=== PATIENT | female | born 1995 | race Caucasian/White ===

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

== ENCOUNTER 2017-01-09 23:16 | Observation (INO) | payer BC, MEDICAID ==
[~2017-01-09] VITALS: Ht 162.6 cm; Wt 67.1 kg
[2017-01-09] MEDS ORDERED: DIPHENOXYLATE HCL/ATROP SULF 2.5 MG TAB PO SCH (23:45)
[2017-01-09] MEDS ORDERED: ONDANSETRON HCL 4 MG/2 ML VIAL IVP ONE (23:45)
[2017-01-09] MEDS ORDERED: D5/0.45 NS 1,000 ML IV SCH (23:45)
[2017-01-09] MEDS ORDERED: D5/0.45 NS 500 ML IV ONE (23:45)
[2017-01-10 00:16] LABS: HEMOGLOBIN 10.6 g/dL (12.0-16.0); RED CELL DISTRIBUTION WIDTH 14.2 % (9.0-15.0)
[2017-01-10 00:21] LABS: CALCIUM 8.4 mg/dL (8.4-11.0); CREATININE 0.64 mg/dL (0.55-1.30); MEAN CORPUSCULAR HEMOGLOBIN 24 pg (27-31); MEAN CORPUSCULAR HGB CONC 33 % (32-36); MEAN CORPUSCULAR VOLUME 73 fL (79.0-98.0)
[2017-01-10 00:28] LABS: ALBUMIN 2.9 g/dL (3.4-4.8); TOTAL BILIRUBIN 0.7 mg/dL (0.0-1.0)
[2017-01-10 00:36] LABS: HEMATOCRIT 32.4 % (36-48); PLATELET COUNT (AUTO) 270 K/uL (130-430); RED BLOOD CELL COUNT(AUTO) 4.43 MIL/uL (4.2-6.2); WHITE BLOOD COUNT (AUTO) 10.5 K/uL (4.5-11.0)
[2017-01-10] MEDS ORDERED: ONDANSETRON HCL 4 MG/2 ML VIAL IVP SCH (01:00)
[2017-01-10 01:01] LABS: BAND % (MANUAL) 0 % (0-6); BASOPHILS % (MANUAL) 0 % (0-2); EOSINOPHILS % (MANUAL) 2 % (0-7); LYMPHOCYTES % (MANUAL) 14 % (20-46); MONOCYTES % (MANUAL) 5 % (0-11)
[2017-01-10] MEDS ORDERED: ONDANSETRON HCL 4 MG/2 ML VIAL ONE (01:05)
[2017-01-10 05:07] VITALS: BP_SYST 118
== END 2017-01-10 15:50 | disposition home or self-care (01) ==
LOC: SPU 23:16
PROVIDERS: ADMIT Specialist; ATTEND Specialist
DX: O21.2 Late vomiting of pregnancy (principal); O26.892 Other specified pregnancy related conditions, second trimester; R19.7 Diarrhea, unspecified; Z3A.26 26 weeks gestation of pregnancy
CPT/HCPCS: 36415; 80053; 81002; 82962; 85007; 85027; G0378 ×2; J2405

== ENCOUNTER 2017-03-14 15:37 | Emergency (ER) | payer MEDICAID ==
[~2017-03-14] VITALS: Ht 162.6 cm; Wt 77.1 kg
[2017-03-14 15:51] VITALS: BP_SYST 135
[2017-03-14 17:33] LABS: BILIRUBIN,URINE NEGATIVE (NEGATIVE); BLOOD, URINE NEGATIVE (NEGATIVE); CLARITY/URINE SL HAZY (CLEAR); COLOR,URINE YELLOW (YELLOW); GLUCOSE,URINE NEGATIVE (NEGATIVE); KETONES,URINE 1+ (NEGATIVE); LEUKOCYTE ESTERASE ,URINE TRACE (NEGATIVE); NITRITE, URINE NEGATIVE (NEGATIVE); PROTEIN URINE NEGATIVE (NEGATIVE)
[2017-03-14 17:38] LABS: BACTERIA,URINE FEW /HPF (None Seen); MUCUS,URINE 1+ /LPF (None Seen); RBC,URINE NONE SEEN /HPF (0-3)
--- NOTE | 2017-03-14 17:50 | NUR ---
Ronna PRODUCT DEVELOPMENT ECOLOGIST at bedside to evaluate patient
--- NOTE | 2017-03-14 17:50 | NUR ---
Pt to ER [place] [id number] Chair. MSE complete.
--- NOTE | 2017-03-14 17:55 | NUR ---
Patient to ER via triage with c/o rash with itching x 1 week. No c/o pain or SOB, patient able to handle her own secretions. Patient reports taking Benadryl OTC without relief of symptoms. Patient denies any known exposure to allergens. Patient has been seen and evaluated by Ronna SINGH. Will continue to observe and assess.
--- NOTE | 2017-03-14 18:00 | NUR ---
FHT OF 139 OBTAINED PRIOR TO BEING D/C.
--- NOTE | 2017-03-14 18:03 | NUR ---
Patient given written and verbal discharge instructions and verbalizes understanding. ER MD discussed with patient the results and treatment provided. Patient in stable condition. ID arm band removed. IV catheter removed intact and dressing applied, no active bleeding. Rx of MACROBID, KENALOG given. Patient educated on pain management and to follow up with PMD. Pain Scale . Opportunity for questions provided and answered.
[2017-03-14 18:10] VITALS: BP_SYST 135
== END 2017-03-14 18:02 | disposition home or self-care (01) ==
LOC: SED 15:37
DX: O26.893 Other specified pregnancy related conditions, third trimester (principal); O23.43 Unspecified infection of urinary tract in pregnancy, third trimester; L50.8 Other urticaria; R03.0 Elevated blood-pressure reading, without diagnosis of hypertension; Z3A.36 36 weeks gestation of pregnancy; Z91.018 Allergy to other foods
CPT/HCPCS: 81000-TC; 87086; 99284

== ENCOUNTER 2017-03-21 12:52 | Inpatient (IN) | payer BC, MEDICAID ==
[~2017-03-21] VITALS: Ht 165.1 cm; Wt 77.1 kg
[2017-03-21] MEDS ORDERED: OXYTOCIN/NORMAL SALINE 1,000 ML IV SCH ×2 (13:03→22:47)
[2017-03-21] MEDS ORDERED: LR 1,000 ML IV SCH (13:03)
[2017-03-21] MEDS ORDERED: LR 1,000 ML IV ONE (13:03)
[2017-03-21] MEDS ORDERED: TERBUTALINE SULFATE 1 MG/ML VIAL SUBCUT ONE (13:15)
[2017-03-21 13:38] LABS: BASOPHILS # (AUTO) 0.1 K/uL (0.0-0.2); BASOPHILS % (AUTO) 0.6 % (0.0-2.0); EOSINOPHILS # (AUTO) 0.1 K/uL (0.0-0.4); EOSINOPHILS % (AUTO) 0.6 % (0.0-4.0); HEMOGLOBIN 10.1 g/dL (12.0-16.0); LYMPHOCYTES # (AUTO) 1.4 K/uL (1.0-5.5); LYMPHOCYTES % (AUTO) 13.4 % (20.5-51.5); MEAN CORPUSCULAR HEMOGLOBIN 22 pg (27-31); MEAN CORPUSCULAR HGB CONC 32 % (32-36); MEAN CORPUSCULAR VOLUME 70 fL (79.0-98.0); MONOCYTES # (AUTO) 0.6 K/uL (0.0-1.0); MONOCYTES % (AUTO) 6.1 % (1.7-9.3); NEUTROPHILS # (AUTO) 8.3 K/uL (1.8-7.7); NEUTROPHILS % (AUTO) 79.3 % (40.0-70.0); PLATELET COUNT (AUTO) 229 K/uL (130-430); RED BLOOD CELL COUNT(AUTO) 4.55 MIL/uL (4.2-6.2); RED CELL DISTRIBUTION WIDTH 17.1 % (9.0-15.0); WHITE BLOOD COUNT (AUTO) 10.5 K/uL (4.5-11.0)
[2017-03-21] MEDS ORDERED: FENT2mCg/mL-ROPIVA0.2%/NS EPID 0 ML EP ONE (14:19)
[2017-03-21] MEDS ORDERED: fentaNYL CITRATE/PF 100 MCG/2 ML AMP ONE ×2 (14:19→21:35)
[2017-03-21] MEDS ORDERED: FENT2mCg/mL-ROPIVA0.2%/NS EPID 150 ML EP ONE ×2 (15:23→21:35)
[2017-03-21] MEDS ORDERED: LIDOCAINE PF 1%, 20 MG/2 ML AMP ONE (15:23)
[2017-03-21] MEDS ORDERED: NALBUPHINE HCL 10 MG/ML AMP IVP PRN (16:40)
[2017-03-21] MEDS ORDERED: NALBUPHINE HCL 10 MG/ML AMP ONE (16:44)
[2017-03-21] MEDS ORDERED: TEMAZEPAM 15 MG CAPSULE PO PRN (21:00)
[2017-03-21] MEDS ORDERED: LR 500 ML IV ONE (21:49)
[2017-03-21] MEDS ORDERED: FENT2mCg/mL-ROPIVA0.2%/NS EPID 150 ML EP SCH (22:00)
[2017-03-21] MEDS ORDERED: ePHEDrine sulfate 50 MG/ML VIAL IVP PRN (22:00)
[2017-03-21] MEDS ORDERED: fentaNYL CITRATE/PF 100 MCG/2 ML AMP EP ONE (22:00)
[2017-03-21] MEDS ORDERED: OXYTOCIN/NORMAL SALINE 1,000 ML IV ONE (22:47)
[2017-03-21] MEDS ORDERED: GLYCERIN/WITCH HAZEL (TUCKS PADS) TP PRN (23:00)
[2017-03-21] MEDS ORDERED: MEASLES,MUMPS&RUBELLA VACC/PF 12500 UNIT/0.5 ML VIAL SUBQ PRN (23:00)
[2017-03-21] MEDS ORDERED: HYDROCORTISONE 0.5%, 28.35 GM TOPICAL CREAM TP PRN (23:00)
[2017-03-21] MEDS ORDERED: LANOLIN 7 GM OINT. TP PRN (23:00)
[2017-03-21] MEDS ORDERED: SENNOSIDES/DOCUSATE SODIUM 1 TAB TABLET(SENOKOT-S) PO PRN (23:00)
[2017-03-21] MEDS ORDERED: ANUSOL 1 EA SUPP.RECT (PREPARATION H) RC PRN (23:00)
[2017-03-21] MEDS ORDERED: METHYLERGONOVINE MALEATE 0.2 MG TABLET PO PRN (23:00)
[2017-03-21] MEDS ORDERED: RHO(D) IMMUNE GLOBULIN/MALTOSE 1500 UNITS/1.3 ML (WINHRO) IM PRN (23:00)
[2017-03-21] MEDS ORDERED: DOCUSATE SODIUM 100 MG CAPSULE PO PRN (23:00)
[2017-03-21] MEDS ORDERED: HYDROcodone/ACETAMIN 5-325 MG TAB (NORCO/ VICODIN) PO PRN (23:00)
[2017-03-21] MEDS ORDERED: DERMOPLAST SPRAY TP PRN (23:00)
[2017-03-22] MEDS ORDERED: DIPHENHYDRAMINE INJ 50 MG/ML VIAL IVP PRN (01:30)
[2017-03-22] MEDS ORDERED: DIPHENHYDRAMINE HCL 50 MG CAPSULE PO PRN (01:30)
[2017-03-22] MEDS: IBUPROFEN 600 MG TABLET PO SCH ×4 (02:13→23:50)
[2017-03-22 07:27] LABS: BASOPHILS % (AUTO) 0.3 % (0.0-2.0); EOSINOPHILS # (AUTO) 0.1 K/uL (0.0-0.4); EOSINOPHILS % (AUTO) 0.4 % (0.0-4.0); HEMATOCRIT 32.2 % (36-48); LYMPHOCYTES # (AUTO) 1.6 K/uL (1.0-5.5); LYMPHOCYTES % (AUTO) 11.4 % (20.5-51.5); MEAN CORPUSCULAR HEMOGLOBIN 22 pg (27-31); MEAN CORPUSCULAR HGB CONC 31 % (32-36); MEAN CORPUSCULAR VOLUME 71 fL (79.0-98.0); MONOCYTES # (AUTO) 0.7 K/uL (0.0-1.0); MONOCYTES % (AUTO) 4.9 % (1.7-9.3); PLATELET COUNT (AUTO) 201 K/uL (130-430); RED BLOOD CELL COUNT(AUTO) 4.56 MIL/uL (4.2-6.2); RED CELL DISTRIBUTION WIDTH 17.2 % (9.0-15.0); WHITE BLOOD COUNT (AUTO) 14.4 K/uL (4.5-11.0)
[2017-03-22] MEDS ORDERED: MINERAL OIL 30 ML UDC PO ONE (19:12)
[2017-03-22] MEDS ORDERED: ROPIVACAINE 40 MG/20 ML AMP EP ONE (19:14)
[2017-03-22] MEDS: OXYCODONE/ACETAMINOPHEN 5-325 TABLET PO PRN (23:54)
[2017-03-23] MEDS: IBUPROFEN 600 MG TABLET PO SCH ×2 (06:00→12:05)
[2017-03-23] MEDS: OXYCODONE/ACETAMINOPHEN 5-325 TABLET PO PRN (06:06)
[2017-03-23] MEDS ORDERED: FLU VACC QS 2017-18(36MOS+)/PF 0.5 ML/SYR SYRINGE I.M. ONE (13:24)
== END 2017-03-23 13:40 | disposition home or self-care (01) | DRG 775 ==
LOC: SPU 12:52
PROVIDERS: ADMIT Specialist; ATTEND Specialist
PROC: 10E0XZZ Delivery of Products of Conception, External Approach (ICD-10-PCS; principal; 2017-03-21)
PROC: 3E0R3BZ Introduction of Anesthetic Agent into Spinal Canal, Percutaneous Approach (ICD-10-PCS; 2017-03-21)
PROC: 00HU33Z Insertion of Infusion Device into Spinal Canal, Percutaneous Approach (ICD-10-PCS; 2017-03-21)
PROC: 3E0234Z Introduction of Serum, Toxoid and Vaccine into Muscle, Percutaneous Approach (ICD-10-PCS; 2017-03-23)
DX: O99.02 Anemia complicating childbirth (principal); D64.9 Anemia, unspecified; Z37.0 Single live birth; Z3A.37 37 weeks gestation of pregnancy; Z23 Encounter for immunization
CPT/HCPCS: 36415; 85025; 86592; 86886; 86900; 86901; A4618; J1200; J2001; J2300; J2590; J2795; J3010; J7120; Q0163; Q2037

== ENCOUNTER 2017-10-26 22:06 | Observation (INO) | payer BC, MEDICAID ==
[~2017-10-26] VITALS: Ht 162.6 cm; Wt 68.0 kg
[2017-10-26] MEDS ORDERED: D5/0.45 NS 1,000 ML IV ONE (22:30)
[2017-10-26] MEDS ORDERED: ONDANSETRON HCL 4 MG/2 ML VIAL IVP ONE (22:30)
== END 2017-10-27 06:00 | disposition home or self-care (01) ==
LOC: UNDOADMOB 22:06 → SPU 22:06
PROVIDERS: ADMIT Specialist; ATTEND Specialist
DX: O21.9 Vomiting of pregnancy, unspecified (principal); Z3A.01 Less than 8 weeks gestation of pregnancy
CPT/HCPCS: 96361 ×2; 96374; G0378 ×2; J2405

== ENCOUNTER 2017-12-04 21:15 | Observation (INO) | payer MEDICAID ==
[~2017-12-04] VITALS: Ht 162.6 cm; Wt 69.9 kg
[2017-12-04] MEDS ORDERED: D5LR 1,000 ML IV SCH (21:44)
[2017-12-04] MEDS ORDERED: D5/0.45 NS 1,000 ML IV ONE (22:00)
[2017-12-04] MEDS ORDERED: ONDANSETRON HCL 4 MG/2 ML VIAL IVP PRN (22:00)
[2017-12-05] MEDS ORDERED: D5/0.45 NS 1,000 ML IV ONE
[2017-12-05] MEDS ORDERED: ONDANSETRON HCL 4 MG/2 ML VIAL IVP PRN (00:30)
[2017-12-05] MEDS ORDERED: ONDANSETRON HCL 4 MG/2 ML VIAL ONE (00:43)
[2017-12-05] MEDS ORDERED: PROMETHAZINE HCL 25 MG/ML AMP IM ONE (01:00)
[2017-12-05] MEDS ORDERED: PROCHLORPERAZINE MALEATE 25 MG/SUPP.RECT EA RC ONE (01:00)
== END 2017-12-05 02:00 | disposition home or self-care (01) ==
LOC: SPU 21:15
PROVIDERS: ADMIT Specialist; ATTEND Specialist
DX: O21.9 Vomiting of pregnancy, unspecified (principal); Z3A.12 12 weeks gestation of pregnancy
CPT/HCPCS: G0378 ×2; J2405 ×2

== ENCOUNTER 2017-12-19 07:39 | Day surgery (SDC) | payer BC ==
[~2017-12-19] VITALS: Ht 162.6 cm; Wt 68.5 kg
[2017-12-19 08:53] LABS: BASOPHILS % (AUTO) 0.3 % (0.0-2.0); EOSINOPHILS # (AUTO) 0.1 K/uL (0.0-0.4); EOSINOPHILS % (AUTO) 0.9 % (0.0-4.0); HEMATOCRIT 31.2 % (36-48); HEMOGLOBIN 10.8 g/dL (12.0-16.0); LYMPHOCYTES # (AUTO) 1.4 K/uL (1.0-5.5); MEAN CORPUSCULAR HEMOGLOBIN 26 pg (27-31); MEAN CORPUSCULAR HGB CONC 35 % (32-36); MEAN CORPUSCULAR VOLUME 76 fL (79.0-98.0); MONOCYTES # (AUTO) 0.6 K/uL (0.0-1.0); NEUTROPHILS # (AUTO) 5.9 K/uL (1.8-7.7); NEUTROPHILS % (AUTO) 73.8 % (40.0-70.0); PLATELET COUNT (AUTO) 227 K/uL (130-430); RED BLOOD CELL COUNT(AUTO) 4.12 MIL/uL (4.2-6.2)
[2017-12-19 09:35] VITALS: BP_SYST 99
[2017-12-19] MEDS ORDERED: MIDAZOLAM HCL 5 MG/5 ML VIAL IVP ONE (09:35)
[2017-12-19] MEDS ORDERED: LIDOCAINE 1% 10 MG/ML, 20 ML MDV INJ ONE (09:35)
[2017-12-19] MEDS ORDERED: NS IRRIG SOLN 1000 ML IR ONE (09:35)
[2017-12-19] MEDS ORDERED: BUPIVACAINE /PF 0.75% 10 ML VIAL INJ ONE (09:35)
[2017-12-19] MEDS ORDERED: LR 1,000 ML IV.SOLN IV ONE (09:35)
[2017-12-19] MEDS ORDERED: TERBUTALINE SULFATE 1 MG/ML VIAL SUBCUT ONE (09:45)
[2017-12-19] MEDS ORDERED: LR 1,000 ML IV ONE (09:45)
[2017-12-19] MEDS: MORPHINE SULFATE 10 MG/ML VIAL IM PRN ×2 (13:22→18:23)
[2017-12-19] MEDS ORDERED: ceFAZolin SODIUM 1 GM in D5W 50 ML IV ONE (15:45)
[2017-12-19] MEDS ORDERED: PROMETHAZINE HCL 25 MG/ML AMP IM PRN (21:15)
[2017-12-19] MEDS ORDERED: MORPHINE SULFATE 10MG/10ML PF AMP ONE (21:24)
== END 2017-12-20 15:25 | disposition home or self-care (01) ==
LOC: SDS 07:39 → SPU 11:25 → SDS 12-20 15:25
PROVIDERS: ATTEND Specialist
DX: O34.32 Maternal care for cervical incompetence, second trimester (principal); Z79.899 Other long term (current) drug therapy; Z98.890 Other specified postprocedural states
CPT/HCPCS: 36415; 59320; 85025; 87070 ×2; J0690; J2001; J2250; J2270; J3490; J7060; J7120; J2274

== ENCOUNTER 2018-03-19 22:05 | Inpatient (IN) | payer BC, MEDICAID ==
[~2018-03-19] VITALS: Ht 162.6 cm; Wt 73.0 kg
[2018-03-19] MEDS ORDERED: LR 1,000 ML IV SCH (22:33)
[2018-03-19] MEDS ORDERED: ceFAZolin SODIUM 2 GM in D5W 100 ML IV ONE (22:45)
[2018-03-19] MEDS ORDERED: ONDANSETRON HCL 4 MG/2 ML VIAL IVP PRN (22:45)
[2018-03-19 23:16] LABS: BASOPHILS # (AUTO) 0.1 K/uL (0.0-0.2); BASOPHILS % (AUTO) 0.5 % (0.0-2.0); EOSINOPHILS # (AUTO) 0.2 K/uL (0.0-0.4); HEMATOCRIT 32.3 % (36-48); HEMOGLOBIN 10.5 g/dL (12.0-16.0); LYMPHOCYTES % (AUTO) 6.5 % (20.5-51.5); MEAN CORPUSCULAR HEMOGLOBIN 24 pg (27-31); MEAN CORPUSCULAR HGB CONC 33 % (32-36); MEAN CORPUSCULAR VOLUME 74 fL (79.0-98.0); MONOCYTES # (AUTO) 0.8 K/uL (0.0-1.0); MONOCYTES % (AUTO) 5.2 % (1.7-9.3); NEUTROPHILS # (AUTO) 13.7 K/uL (1.8-7.7); NEUTROPHILS % (AUTO) 86.8 % (40.0-70.0); PLATELET COUNT (AUTO) 283 K/uL (130-430); WHITE BLOOD COUNT (AUTO) 15.8 K/uL (4.8-10.8)
[2018-03-19] MEDS: D5/0.45 NS 1,000 ML IV SCH (23:24)
[2018-03-19 23:30] LABS: CALCIUM 8.9 mg/dL (8.4-11.0); CREATININE 0.33 mg/dL (0.55-1.30); POTASSIUM 3.7 mmol/L (3.5-5.1)
[2018-03-19] MEDS ORDERED: PROMETHAZINE HCL 25 MG/ML AMP IM SCH (23:30)
[2018-03-19] MEDS ORDERED: MEPERIDINE HCL/PF 50 MG/ML AMP IM SCH (23:30)
[2018-03-19 23:35] LABS: ALBUMIN 2.7 g/dL (3.4-4.8); TOTAL BILIRUBIN 1.1 mg/dL (0.0-1.0)
[2018-03-20] MEDS ORDERED: CEFAZOLIN 2 GM IVPB PREMIX 50 ML IV ONE (00:40)
[2018-03-20] MEDS: D5/0.45 NS 1,000 ML IV SCH (00:49)
[2018-03-20] MEDS ORDERED: CEFAZOLIN 2 GM IVPB PREMIX 50 ML IV SCH (01:00)
[2018-03-20 01:16] LABS: BILIRUBIN,URINE NEGATIVE (NEGATIVE); BLOOD, URINE NEGATIVE (NEGATIVE); CLARITY/URINE CLEAR (CLEAR); COLOR,URINE YELLOW (YELLOW); GLUCOSE,URINE 3+ (NEGATIVE); KETONES,URINE TRACE (NEGATIVE); LEUKOCYTE ESTERASE ,URINE 1+ (NEGATIVE); NITRITE, URINE NEGATIVE (NEGATIVE); PROTEIN URINE NEGATIVE (NEGATIVE)
[2018-03-20 01:29] LABS: RBC,URINE 0-3 /HPF (0-3)
[2018-03-20 01:30] LABS: BACTERIA,URINE None Seen /HPF (None Seen)
[2018-03-20 01:55] VITALS: BP_SYST 108
[2018-03-20] MEDS ORDERED: CEFAZOLIN 1 GM IVPB PREMIX 50 ML IV SCH (06:00)
[2018-03-20] MEDS ORDERED: ceFAZolin SODIUM 1 GM in D5W 50 ML IV SCH (06:00)
[2018-03-20] MEDS ORDERED: BETAMET ACET/BETAMET NA PH 30 MG/5 ML VIAL IM ONE ×2 (08:30→08:39)
[2018-03-20] MEDS ORDERED: MAGNESIUM SULFATE 50 ML IV ONE (08:30)
[2018-03-20] MEDS ORDERED: MAGNESIUM SULFATE 4 GM in D5W 250 ML IV ONE (08:30)
[2018-03-20] MEDS ORDERED: MAGNESIUM SULFATE IN WATER 100 ML IV ONE (08:38)
[2018-03-20] MEDS ORDERED: AZITHROMYCIN 500 MG in NS 250 ML IV ONE (08:45)
[2018-03-20] MEDS ORDERED: MAGNESIUM SULFATE IN WATER 500 ML IV ONE (09:00)
== END 2018-03-20 09:40 | disposition short-term general hospital (02) | DRG 833 ==
LOC: SPU 22:05
PROVIDERS: ADMIT Specialist; ATTEND Specialist
DX: O23.42 Unspecified infection of urinary tract in pregnancy, second trimester (principal); O42.92 Full-term premature rupture of membranes, unspecified as to length of time between rupture and onset of labor; Z3A.28 28 weeks gestation of pregnancy
CPT/HCPCS: 36415; 80053; 81000-TC; 85025; J0456; J0690; J0702; J2175; J2405; J2550; J3475; J7050; J7060